=== PATIENT | male | born 1945 | race Caucasian/White ===

== ENCOUNTER 2017-08-04 04:20 | Emergency (ER) | payer OTHER ==
[~2017-08-04] VITALS: Ht 172.7 cm; Wt 100.0 kg
[2017-08-04] MEDS ORDERED: oxyCODONE/ACETAMINOPHEN 5 MG/325 MG TAB PO ONE (04:30)
[2017-08-04] MEDS ORDERED: LIDOCAINE 2% JELLY 30 ML TUBE TOPICAL ONE (04:30)
--- NOTE | 2017-08-04 04:59 | PD ---
HPI Chief Complaint: Urinary retention Time Seen by Provider: 04:27 Travel History International Travel<30 days: No Contact w/Intl Traveler<30days: No Traveled to known affect area: No History of Present Illness HPI Patient is a 72-year-old male coming in complaining that for the last 5 hours he has not been able to urinate. He has worsening swelling in his bladder suprapubic area. Due to Prostate CA Hx he has prosthetic penal pumps. He says that sometimes he gets urine infections, and he's had clots it the past but not today.Denies any trauma to his penis or prosthetic. He now is coming in with pressure to suprapubic area . He has taken nothing for the pain and he hasnt been able to see his urologist Dr Palacios.Pain is pressure like bloating located in his Suprpubic area no radiation no pain in penis PFSH Social History Tobacco Use: No Allergies-Medications (Allergen,Severity, Reaction): Coded Allergies: No Known Allergies (Verified Allergy, Unknown, 08/04/17) Reported Meds & Prescriptions Reported Meds & Active Scripts Active Flomax (Tamsulosin HCl) 0.4 Mg Cap 0.4 Mg PO HS Review of Systems Except as stated in HPI: all other systems reviewed are Neg Gastrointestinal: Positive: Abdominal Pain Genitourinary: Positive: Decreased Urinary Output, Other (no urine 5 hrs) Physical Exam Narrative Patient's abdomen is distended suprapubically his penis is rigid and small with plastic prosthetics felt [place] is placed slowly 16 Brazilian coud without complications irrigated and good urine output patient feels much better and is decompressed GENERAL: Patient is in pain he is holding his abdomen leaning over SKIN: Warm and dry. HEAD: Atraumatic. Normocephalic. EYES: Pupils equal and round. No scleral icterus. No injection or drainage. ENT: No nasal bleeding or discharge. Mucous membranes pink and moist. NECK: Trachea midline. No JVD. CARDIOVASCULAR: Regular rate and rhythm. RESPIRATORY: No accessory muscle use. Clear to auscultation. Breath sounds equal bilaterally. GASTROINTESTINAL: Abdomen:, Suprapubic tenderness tender, +distended. Hepatic and splenic margins not palpable. patient has a prosthetic plastic tubes felt inside the corpora cavernosa on both sides of the cavernosa . MUSCULOSKELETAL: Extremities without clubbing, cyanosis, or edema. No obvious deformities. NEUROLOGICAL: Awake and alert. No obvious cranial nerve deficits. Motor grossly within normal limits. Five out of 5 muscle strength in the arms and legs. Normal speech. PSYCHIATRIC: Appropriate mood and affect; insight and judgment normal. Data Data Last Documented VS Vital Signs Date Time Temp Pulse Resp B/P (MAP) Pulse Ox O2 Delivery O2 Flow Rate FiO2 08/04/17 06:40 68 16 127/74 (91) 98 08/04/17 05:02 98.5 Orders Orders Oxycodone-Acetamin 5-325 Mg (Percocet (08/04/17 04:30) Urinalysis - C+S If Indicated (08/04/17 04:29) Urinary Catheter Insert/Apply (08/04/17 04:29) Lidocaine 2% Jelly (Xylocaine 2% Jelly) (08/04/17 04:30) Ed Discharge Order (08/04/17 06:49) Labs Laboratory Tests Test 08/04/17 05:00 Urine Color LIGHT-RED Urine Turbidity HAZY Urine pH 5.5 Urine Specific [place] 1.013 Urine Protein 30 mg/dL Urine Glucose (UA) NEG mg/dL Urine Ketones NEG mg/dL Urine Occult Blood LARGE Urine Nitrite NEG Urine Bilirubin NEG Urine Urobilinogen LESS THAN 2.0 MG/DL Urine Leukocyte Esterase SMALL Urine RBC /hpf Urine WBC 6 /hpf Urine Squamous Epithelial Cells 1 /hpf Urine Amorphous Sediment RARE Urine Bacteria OCC /hpf Urine Mucus FEW /lpf Microscopic Urinalysis Comment CULT NOT INDICATED MDM Medical Decision Making Medical Screen Exam Complete: Yes Emergency Medical Condition: Yes Differential Diagnosis Bladder infection with bleeding and clot obstructing the outflow his bladder versus mechanical defect of his prosthetic pump versus prostate enlargement obstructing his urethra Narrative Course I take a 16 Brazilian coud gently pass it without complications and irrigate and return thousand cc of clear urine yellow no clots are seen patient is great reduction of his pain is suprapubic areas longer distended try to page his urologist Dr. Palacios but he is not on our staff. I will page the Rima the urologist on-call for POW Procedures Procedure Narrative I placed a 16 Brazilian coud through his penis very careful to not affect the hardware and prosthetic pumps in his penis shaft corpora cavernosa ..Slowly with soft constant pressure I passed spain into his bladder .. procedure was sterile technique 16 Brazilian coud without complications urine return was @1000 cc yellow urine... Then suprapubic pain relieved by [place] placement by this M.DXavier Physician Communication Physician Communication I spoke to Dr. Batista the of the [place] and discussed no whether it is safe to follow-up as an outpatient with a leg bag Dr. Mantilla feels it is safe for him follow-up as an outpatient patient agrees I explained to him in Filipino she will call his urologist in the morning he has used leg bag and this has happened to him before it is safe to discharge Diagnosis Primary Impression: Urinary retention Referrals: Alfred Mantilla MD Patient Instructions: General Instructions, Urinary Retention in Men (ED) Scripts Tamsulosin (Flomax) 0.4 Mg Cap 0.4 MG PO HS for Manage Prostate Problems, #8 CAP 0 Refills Prov: Neil Moya MD 08/04/17 Disposition: 01 DISCHARGE HOME Neil Moya MD Aug 04, 2017 04:59
[2017-08-04 05:02] VITALS: BP 160/76; PULSE 71; RESP 20; TEMP 98.5; O2SAT 98
[2017-08-04 05:55] LABS: BACTERIA, URINE OCC /hpf; BLOOD, URINE LARGE (NEG); COMMENT (UR) CULT NOT INDICATED; CULTURE IF INDICATED CULT NOT INDICATED; GLUCOSE,URINE NEG (NEG); KETONE, URINE NEG (NEG); MUCUS URINE FEW /lpf (OCC); NITRITE,URINE NEG (NEG); PH, URINE 5.5 (5.0-8.5); SQUAMOUS EPITHELIAL CELL URINE 1 /hpf (0-5)
[2017-08-04 05:56] LABS: URINE COLOR LIGHT-RED (YELLW/STRAW)
[2017-08-04] MEDS ORDERED: TAMS5CAP PO (06:35)
[2017-08-04 06:40] VITALS: BP 127/74
== END 2017-08-04 06:58 | disposition home or self-care (01) ==
LOC: NEPE 04:20
DX: R33.9 Retention of urine, unspecified (principal); Z85.46 Personal history of malignant neoplasm of prostate; Z87.440 Personal history of urinary (tract) infections
CPT/HCPCS: 51702; 81001

== ENCOUNTER 2017-08-04 09:57 | Emergency (ER) | payer OTHER ==
[~2017-08-04] VITALS: Ht 172.7 cm; Wt 102.2 kg
[~2017-08-04 09:57] MED LIST: TAMS5CAP PO
[2017-08-04 09:58] VITALS: BP 146/86; PULSE 68; RESP 12; TEMP 98.9; O2SAT 99
--- NOTE | 2017-08-04 11:53 | PD ---
HPI Chief Complaint: Complaint Time Seen by Provider: 10:12 Travel History International Travel<30 days: No Contact w/Intl Traveler<30days: No Traveled to known affect area: No History of Present Illness HPI 72-year-old male came to the emergency room with history of dribbling micturition around the coud catheter that has been placed early this morning. Patient came to the emergency room for urinary incontinence and had a coud catheter placed by the ER physician. Patient has a penile implant. Patient says when he went home he has been having a lot of urine coming around the catheter. He still feels discomfort in his suprapubic area. Is about 100 ML's of urine in the leg bag. This looks clear. No history of fever or chills. [facility] Past Medical History Narrative Medical List of his past medical, surgical, social and family history is reviewed from the nursing note. Cancer: Yes (PROSTATE) Diminished Hearing: No Genitourinary: Yes Hypertension: Yes Past Surgical History Genitourinary Surgery: Yes (PROSTATECTOMY) Social History Alcohol Use: Yes Tobacco Use: Yes Substance Use: No Allergies-Medications (Allergen,Severity, Reaction): Coded Allergies: No Known Allergies (Verified Allergy, Unknown, 08/04/17) Comments No known drug allergies. Reported Meds & Prescriptions Reported Meds & Active Scripts Active Flomax (Tamsulosin HCl) 0.4 Mg Cap 0.4 Mg PO HS Narrative Medication List of his home medications reviewed from the nursing note. Review of Systems Except as stated in HPI: all other systems reviewed are Neg Physical Exam Narrative GENERAL: Awake, alert, moderate distress SKIN: Focused skin assessment warm/dry. HEAD: Atraumatic. Normocephalic. EYES: Pupils equal and round. No scleral icterus. No injection or drainage. ENT: No nasal bleeding or discharge. Mucous membranes pink and moist. NECK: Trachea midline. No JVD. CARDIOVASCULAR: Regular rate and rhythm. No murmur appreciated. RESPIRATORY: No accessory muscle use. Clear to auscultation. Breath sounds equal bilaterally. GASTROINTESTINAL: Abdomen soft, suprapubic fullness and tenderness, nondistended. Hepatic and splenic margins not palpable. Coud catheter with urinary incontinence or on the catheter. MUSCULOSKELETAL: No obvious deformities. No clubbing. No cyanosis. No edema. NEUROLOGICAL: Awake and alert. No obvious cranial nerve deficits. Motor grossly within normal limits. Normal speech. PSYCHIATRIC: Appropriate mood and affect; insight and judgment normal. Data Data Last Documented VS Orders Orders Ed Discharge Order (08/04/17 13:37) MDM Medical Decision Making Medical Screen Exam Complete: Yes Emergency Medical Condition: Yes Medical Record Reviewed: Yes Differential Diagnosis Urinary obstruction, Narrative Course 11:53 AM I did a bedside ultrasound that shows significant urine in the bladder. He discussed the case with Dr. Mantilla who will come and see the patient. 1:[address] Mantilla came in to see the patient and try to irrigate the Coude catheter after which the urine started to drain out. He was okay discharging the patient. Patient has been seen by his partner and they'll see him on Sunday. Procedures Procedure Narrative Emergency Department Pelvic ultrasound was performed with patient consent. The curvilinear probe was used in the transverse and sagittal views within the suprapubic region revealing distended bladder with some urine and in the adjacent reservoir for the penile pump. Patient was uncomfortable during the ultrasound. EKG Prior to Arrival: No Physician Communication Physician Communication Dr. Mantilla Diagnosis Primary Impression: Urinary retention Additional Impression: Malfunction of Colon catheter Qualified Codes: T83.011A - Breakdown (mechanical) of indwelling urethral catheter, initial encounter Referrals: Alfred Mantilla MD 2 days Additional Instructions: See the urologist Sunday morning. Tried to flush the Colon catheter if this happens again as you have been shown by the neurologist and the nurse. Return to the ER if condition worsens. Med/Other Pt SpecificInfo: No Change to Meds Disposition: 01 DISCHARGE HOME Condition: Stable Shelli Kirk MD Aug 04, 2017 11:53
--- NOTE | 2017-08-04 12:47 | PD.CONS ---
HPI Service Urology Consult Requested By Reason for Consult Catheter not draining Primary Care Physician No Primary Care Physician Diagnosis: History of Present Illness 72-year-old male with history of prostate cancer status post radiation therapy many years ago in [place] seen in consultation for Colon catheter not adequately draining. Patient was recently at [facility] emergency department due to urinary retention. A 16 Micronesian Colon catheter was successfully placed and significant amount of urine was removed, approximately 1 L. He was discharged home with a catheter in place. He now presents a few hours after this catheter placement with concern for leakage around the catheter and nondraining catheter. Patient reports some discomfort from the catheter. Of note the patient has a history of a penile implant. Upon further questioning the patient mention he also has an artificial urinary sphincter. It is unclear if the patient is adequately cycling of this sphincter device. No fevers, no hematuria. Patient is currently followed by Dr. Quinones. Review of Systems ROS Limitations: Clinical Condition Constitutional: DENIES: Fever Endocrine: DENIES: Heat/cold intolerance Eyes: DENIES: Blurred vision Ears, nose, mouth, throat: DENIES: Hearing loss Respiratory: DENIES: Apneas Cardiovascular: DENIES: Chest pain Gastrointestinal: DENIES: Abdominal pain Genitourinary: COMPLAINS OF: Urinary incontinence, DENIES: Hematuria Musculoskeletal: DENIES: Back pain Integumentary: DENIES: Abnormal pigmentation Hematologic/lymphatic: DENIES: Bruising Neurologic: DENIES: Headache Psychiatric: DENIES: Anxiety Except as stated in HPI: all other systems reviewed are Neg Past Family Social History 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, 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 Past Surgical History Penile implant Artificial urinary sphincter Reported Medications Reported Meds & Active Scripts Active Flomax (Tamsulosin HCl) 0.4 Mg Cap 0.4 Mg PO HS Allergies: Coded Allergies: No Known Allergies (Verified Allergy, Unknown, 08/04/17) Family History Family history reviewed and noncontributory to present illness Social History No ETOH Tobacco use Physical Exam Vital Signs Date Time Temp Pulse Resp B/P (MAP) Pulse Ox O2 Delivery O2 Flow Rate FiO2 08/04/17 09:58 98.9 68 12 146/86 (106) 99 Physical Exam GENERAL: This is a well-nourished, well-developed patient, in no apparent distress. SKIN: No rashes, ecchymoses or lesions. Cool and dry. HEAD: Atraumatic. Normocephalic. EYES: . Extraocular motions intact. No scleral icterus. No injection or drainage. ENT: Nose without bleeding, purulent drainage Airway patent. NECK: Trachea midline. No JVD or lymphadenopathy. CARDIOVASCULAR: Normal pulses RESPIRATORY: Nonlabored GASTROINTESTINAL: Abdomen soft, non-tender, nondistended. GENITOURINARY: 16 Micronesian Colon catheter in place, minimal urine noted in the bag. Bilateral penile implant cylinders noted in place and palpable nontender. Appears to be in good position without any evidence of erosion or crossover. Palpable pump noted in the scrotum. The AUS pump also palpable and appears to be in the active position despite having a Colon catheter in place. MUSCULOSKELETAL: Extremities without clubbing, cyanosis, or edema. NEUROLOGICAL: Awake and alert. Motor and sensory grossly within normal limits. Normal speech. Assessment and Plan Problem List: (1) Prostate cancer ICD Code: C61 - Malignant neoplasm of prostate (2) Urinary incontinence ICD Code: R32 - Unspecified urinary incontinence (3) Urinary retention ICD Code: R33.9 - Retention of urine, unspecified Assessment and Plan The artificial urinary sphincter was immediately deactivated and locked into the deactivated position. A Colon catheter was then gently irrigated with a saline flush and immediately significant amount of clear yellow urine was removed and the catheter continued to drain without difficulty. Patient's discomfort also improved. Instructed patient to followup in clinic on Sunday. He will likely need his [place] catheter removed in order to prevent any erosion from the catheter on the AUS device. Given the fact that the Colon catheter was placed during what appears to be an active/closed position of the AUS, he may require cystoscopy for evaluation. He may also require the AUS device to remain in the open position for a period of time. Patient understands to follow up in clinic on Sunday. Alfred Mantilla MD Aug 04, 2017 12:47
== END 2017-08-04 13:58 | disposition home or self-care (01) ==
LOC: NEPE 09:57
DX: R33.9 Retention of urine, unspecified (principal); T83.011A Breakdown (mechanical) of indwelling urethral catheter, initial encounter; C61 Malignant neoplasm of prostate; R32 Unspecified urinary incontinence; I10 Essential (primary) hypertension; Z72.0 Tobacco use; Z85.46 Personal history of malignant neoplasm of prostate; Z87.448 Personal history of other diseases of urinary system
CPT/HCPCS: 51700

== ENCOUNTER 2017-08-05 06:07 | Emergency (ER) | payer OTHER ==
[2017-08-05 06:08] VITALS: BP 137/83; PULSE 104; RESP 18; TEMP 98.6; O2SAT 98
--- NOTE | 2017-08-05 06:44 | PD ---
HPI Chief Complaint: Complaint Time Seen by Provider: 06:31 Travel History International Travel<30 days: No Contact w/Intl Traveler<30days: No Traveled to known affect area: No History of Present Illness HPI 72-year-old male presents to the emergency department by private transportation for complaint of urinary retention. Patient has a urinary catheter in place. Patient states this is his third visit to the emergency department since Sunday. Patient presented on Sunday for first episode of urinary retention. Patient is followed as an outpatient by urologist Dr. Baker history of prostate cancer. Patient has not had an opportunity to follow-up with his urologist as symptoms have developed over the weekend. Patient denies fever chills nausea vomiting and denies any abdominal pain or suprapubic pain at this time. Patient was seen yesterday in the emergency department and a urologist evaluate him in the emergency room flush his catheter and he was encouraged to use flush syringes as an outpatient until he can see his urologist on Sunday. Patient states she last attempted to flush the urinary catheter one hour prior to arrival to the emergency department but has not had successful urine output. Patient presents at this time for recurrent urinary catheter/urinary retention issues. PFSH Past Medical History Narrative Medical Prostate cancer hypertension prostatectomy penile implant AUS/artificial urinary sphincter device; no tobacco use nursing notes reviewed Cancer: Yes (PROSTATE) Diminished Hearing: No Genitourinary: Yes Hypertension: Yes ?: Not Past Surgical History Genitourinary Surgery: Yes (PROSTATECTOMY) Social History Alcohol Use: Yes Tobacco Use: Yes Substance Use: No Allergies-Medications (Allergen,Severity, Reaction): Coded Allergies: No Known Allergies (Verified Allergy, Unknown, 08/04/17) Reported Meds & Prescriptions Reported Meds & Active Scripts Active Flomax (Tamsulosin HCl) 0.4 Mg Cap 0.4 Mg PO HS Review of Systems Except as stated in HPI: all other systems reviewed are Neg General / Constitutional: No: Fever, Chills Cardiovascular: No: Chest Pain or Discomfort, Syncope Respiratory: No: Shortness of Breath Gastrointestinal: No: Abdominal Pain Genitourinary: Positive: Decreased Urinary Output Musculoskeletal: No: Pain Neurologic: No: Weakness Psychiatric: Positive: Anxiety Hematologic/Lymphatic: No: Lymph Node Enlargement Physical Exam Narrative GENERAL: Well-developed well-nourished female in no acute distress no respiratory distress SKIN: Warm and dry. HEAD: Normocephalic. EYES: No scleral icterus. No injection or drainage. NECK: Supple, trachea midline. No JVD or lymphadenopathy. CARDIOVASCULAR: Regular rate and rhythm without murmurs, gallops, or rubs. RESPIRATORY: Breath sounds equal bilaterally. No accessory muscle use. GASTROINTESTINAL: Abdomen soft, non-tender, mild suprapubic distention with tenderness to palpation. : Circumcised male with bilaterally descended testicles urinary catheter in place. MUSCULOSKELETAL: No cyanosis, or edema. BACK: Nontender without obvious deformity. No CVA tenderness. Data Data Last Documented VS Vital Signs Date Time Temp Pulse Resp B/P (MAP) Pulse Ox O2 Delivery O2 Flow Rate FiO2 08/05/17 06:49 89 14 133/82 (99) 99 Room Air 08/05/17 06:08 98.6 MDM Medical Decision Making Medical Screen Exam Complete: Yes Emergency Medical Condition: Yes Medical Record Reviewed: Yes Differential Diagnosis Urinary retention, urinary catheter occlusion, urinary catheter dislodgment Narrative Course Attempt to flush urinary catheter performed. Catheter appeared to flush without difficulty and drained readily the flushed amount. Call placed to urologist Dr. Mantilla Discussed with on-call urologist recommends patient keep urinary catheter in place as it is functioning and that he will be seen in the office tomorrow at that time only determine whether or not he is a candidate to have the catheter removed. Dr. Mantilla does not recommend removing the catheter at this time. Physician Communication Physician Communication call placed to urologist retention specialist Diagnosis Primary Impression: Difficulty managing urinary catheter Referrals: Urologist 1 day Patient Instructions: General Instructions Med/Other Pt SpecificInfo: No Change to Meds Disposition: 01 DISCHARGE HOME Condition: Stable Nuris Lanier MD Aug 05, 2017 06:44
[2017-08-05 06:49] VITALS: BP 133/82; PULSE 89; RESP 14; RESP 4; O2SAT 99
== END 2017-08-05 10:16 | disposition home or self-care (01) ==
LOC: NEPC 06:07
DX: R33.9 Retention of urine, unspecified (principal); I10 Essential (primary) hypertension; Z72.0 Tobacco use; Z85.46 Personal history of malignant neoplasm of prostate
CPT/HCPCS: 99283

== ENCOUNTER 2017-11-09 05:58 | Emergency (ER) | payer OTHER ==
[~2017-11-09] VITALS: Ht 172.7 cm; Wt 95.9 kg
[2017-11-09 06:03] VITALS: BP 171/83; PULSE 66; RESP 22; TEMP 97.7; O2SAT 100
[2017-11-09] MEDS ORDERED: ATOR20TA15 PO (06:15)
[2017-11-09] MEDS ORDERED: DOXA1TAB36 PO (06:15)
[2017-11-09] MEDS ORDERED: METO25TA3 PO (06:15)
[2017-11-09] MEDS ORDERED: ASPI81TA23 PO (06:15)
[2017-11-09] MEDS ORDERED: FERRPOW51 (06:15)
[2017-11-09] MEDS ORDERED: IBUP1TAB5 PO (06:15)
[2017-11-09] MEDS ORDERED: LIDOCAINE 2% JELLY 5 ML TUBE TOPICAL ONE (06:30)
--- NOTE | 2017-11-09 06:49 | PD ---
HPI Chief Complaint: Complaint Time Seen by Provider: 06:41 Travel History International Travel<30 days: No Contact w/Intl Traveler<30days: No Traveled to known affect area: No History of Present Illness HPI Patient is a 72-year-old male who has a prosthetic pump in his penis and he has had issues over the last year of having bleeding urinary hesitancy urinary retention I saw the patient about 3 months ago and had to pass a [place] to decompress his bladder with obstruction due to clots patient now is here in the ER 8 hours no urine and he's having pain in his suprapubic area. He was here in the ER a week ago he said he had a CAT scan and he had pain and at that time he was not obstructed urinary-shukla and he went home to follow-up with his urologist. He has not seen his urologist and he is hoping that we can see him today. I pass a 18 Malaysian [place] through his prosthetic penis without any competitions and dark red urine colored burgundy 400 cc returns to the [place]. UA is sent we will try to contact his urologist the pain was localized to the supra pubic area and it was pressure-like constant progressing for the last 8 hours PFSH Past Medical History Cancer: Yes (PROSTATE) Diminished Hearing: No Genitourinary: Yes Hypertension: Yes Past Surgical History Genitourinary Surgery: Yes (PROSTATECTOMY) Social History Alcohol Use: Yes Tobacco Use: No Substance Use: No Allergies-Medications (Allergen,Severity, Reaction): Coded Allergies: No Known Allergies (Verified Allergy, Unknown, 11/09/17) Reported Meds & Prescriptions Reported Meds & Active Scripts Active Flomax (Tamsulosin HCl) 0.4 Mg Cap 0.4 Mg PO HS Reported Atorvastatin (Atorvastatin Calcium) 20 Mg Tab 20 Mg PO HS Ferric Sulfate Hydrate (Ferric Sulfate (Bulk)) 100 % Pow Ibuprofen 400 Mg Tab 400 Mg PO Q6H PRN Doxazosin (Doxazosin Mesylate) 1 Mg Tab 1 Mg PO DAILY Aspirin EC (Aspirin) 81 Mg Tabdr 81 Mg PO DAILY Metoprolol Tartrate 25 Mg Tab 25 Mg PO DAILY Physical Exam Narrative GENERAL: Patient seems to be mild distress and pain in his suprapubic penal area SKIN: Warm and dry. HEAD: Atraumatic. Normocephalic. EYES: Pupils equal and round. No scleral icterus. No injection or drainage. ENT: No nasal bleeding or discharge. Mucous membranes pink and moist. NECK: Trachea midline. No JVD. CARDIOVASCULAR: Regular rate and rhythm. RESPIRATORY: No accessory muscle use. Clear to auscultation. Breath sounds equal bilaterally. GASTROINTESTINAL: Abdomen suprapubic area is tender tender, and distended. Hepatic and splenic margins not palpable. MUSCULOSKELETAL: Extremities without clubbing, cyanosis, or edema. No obvious deformities. NEUROLOGICAL: Awake and alert. No obvious cranial nerve deficits. Motor grossly within normal limits. Five out of 5 muscle strength in the arms and legs. Normal speech. PSYCHIATRIC: Appropriate mood and affect; insight and judgment normal. patient has a prosthetic plastic phenyl pump which is felt while the [place] is being passed through his penis shaft it is rigid Spain passed without problem and then burgundy colored urine 400 cc is collecting the urine bag pain is decreased in the suprapubic area. Patient reports relief Data Data Last Documented VS Orders Orders Lidocaine 2% Jelly (Xylocaine 2% Jelly) (11/09/17 06:30) Urinalysis - C+S If Indicated (11/09/17 06:42) Urine Culture (11/09/17 06:35) Ed Discharge Order (11/09/17 08:38) Labs Laboratory Tests Test 11/09/17 06:35 Urine Color RED Urine Turbidity CLOUDY Urine pH 6.0 Urine Specific [place] 1.021 Urine Protein 100 mg/dL Urine Glucose (UA) NEG mg/dL Urine Ketones NEG mg/dL Urine Occult Blood LARGE Urine Nitrite NEG Urine Bilirubin NEG Urine Urobilinogen LESS THAN 2.0 MG/DL Urine Leukocyte Esterase LARGE Urine RBC /hpf Urine WBC 79 /hpf Urine WBC Clumps OCC Urine Squamous Epithelial Cells 3 /hpf Urine Bacteria FEW /hpf Microscopic Urinalysis Comment CULTURE INDICATED MDM Medical Decision Making Medical Screen Exam Complete: Yes Emergency Medical Condition: Yes Differential Diagnosis pt has retention urine from blood clots and prostate and penile implant hx Narrative Course i pass a spain and relieve the urinary retention Diagnosis Primary Impression: Urinary retention Neil Moya MD Nov 09, 2017 06:49
[2017-11-09 08:01] LABS: BACTERIA, URINE FEW /hpf; BILIRUBIN, URINE NEG (NEG); BLOOD, URINE LARGE (NEG); GLUCOSE,URINE NEG (NEG); KETONE, URINE NEG (NEG); NITRITE,URINE NEG (NEG); SQUAMOUS EPITHELIAL CELL URINE 3 /hpf (0-5); URINE COLOR RED (YELLW/STRAW); URINE LEUKOCYTE ESTERASE LARGE (NEG); WHITE BLOOD CELL CLUMPS OCC
--- NOTE | 2017-11-09 08:38 | PD ---
Data Data Last Documented VS Vital Signs Date Time Temp Pulse Resp B/P (MAP) Pulse Ox O2 Delivery O2 Flow Rate FiO2 11/09/17 06:03 97.7 66 22 171/83 (112) 100 Orders Orders Lidocaine 2% Jelly (Xylocaine 2% Jelly) (11/09/17 06:30) Urinalysis - C+S If Indicated (11/09/17 06:42) Urine Culture (11/09/17 06:35) Labs Laboratory Tests Test 11/09/17 06:35 Urine Color RED Urine Turbidity CLOUDY Urine pH 6.0 Urine Specific [place] 1.021 Urine Protein 100 mg/dL Urine Glucose (UA) NEG mg/dL Urine Ketones NEG mg/dL Urine Occult Blood LARGE Urine Nitrite NEG Urine Bilirubin NEG Urine Urobilinogen LESS THAN 2.0 MG/DL Urine Leukocyte Esterase LARGE Urine RBC /hpf Urine WBC 79 /hpf Urine WBC Clumps OCC Urine Squamous Epithelial Cells 3 /hpf Urine Bacteria FEW /hpf Microscopic Urinalysis Comment CULTURE INDICATED MDM Supervised Visit with CECILIA: No Narrative Course This case was checked out to me by the date night caregiver doctor at 7 AM. Is now 8:30 AM I rechecked the patient. He is sound asleep. I will come up and discuss things with him. He has no pain. There is 1600 cc of urine in the Colon. It started out bloody but now is coming out clear Or switching him to a leg bag and he is going to follow-up with his urologist Urinalysis shows hematuria as expected and will be cultured but given the innumerable red cells the 79 white cells found is expected Diagnosis Primary Impression: Urinary retention Additional Impression: Hematuria Qualified Codes: R31.9 - Hematuria, unspecified Additional Instruction: Follow-up with your urologist Med/Other Pt SpecificInfo: Other Disposition: 01 DISCHARGE HOME Condition: Stable Richard Harris MD Nov 09, 2017 08:38
== END 2017-11-09 09:14 | disposition home or self-care (01) ==
LOC: NEPE 05:58
DX: R33.9 Retention of urine, unspecified (principal); R31.9 Hematuria, unspecified
CPT/HCPCS: 51702; 81001; 87086